=== PATIENT | male | born 1995 | race Two or more races ===

== ENCOUNTER 2024-08-02 05:05 | Emergency (ER) | payer SELFPAY ==
[~2024-08-02] VITALS: Ht 170.2 cm; Wt 98.0 kg
[2024-08-02 05:15] VITALS: O2SAT 97
[2024-08-02] MEDS: IBUPROFEN 800MG TABLET PO ONE (06:09)
[2024-08-02] MEDS: OXYCODONE HCL/ACETAMINOPHEN 5/325MG TABLET PO ONE (06:09)
[2024-08-02] MEDS ORDERED: T3 PO (06:19)
[2024-08-02] MEDS ORDERED: IBUP-2030 PO (06:19)
[2024-08-02 07:02] VITALS: BP 163/96; PULSE 101; RESP 18; TEMP 36.55848; O2SAT 97
== END 2024-08-02 07:09 | disposition home or self-care (01) ==
LOC: ER 05:05
DX: M54.9 Dorsalgia, unspecified (principal)
CPT/HCPCS: 72100; 99283

== ENCOUNTER 2024-08-06 07:17 | Emergency (ER) | payer SELFPAY ==
[~2024-08-06] VITALS: Ht 175.3 cm; Wt 95.0 kg
[~2024-08-06 07:17] MED LIST: IBUP-2030 PO; T3 PO
[2024-08-06 07:20] VITALS: O2SAT 99
[2024-08-06 09:24] LABS: BASOPHILS % 0.5 % (0.0-2.0); EOSINOPHILS % 2.9 % (0.0-5.0); HEMATOCRIT. 44.8 % (42.0-52.0); HEMOGLOBIN. 14.9 g/dL (14.0-18.0); LYMPHOCYTES % 19.3 % (20.0-50.0); MEAN CORPUSCULAR HEMOGLOBIN 27.9 pg (28.0-32.0); MEAN CORPUSCULAR HGB CONC 33.3 g/dL (31.0-37.0); MEAN CORPUSCULAR VOLUME 83.8 fL (80.0-94.0); MEAN PLATELET VOLUME 8.8 fl (7.4-10.4); MONOCYTES % 11.7 % (2.0-8.0); NEUTROPHILS % 65.6 % (40.0-76.0); PLATELET 332 x1000/uL (130-400); RED BLOOD CELL COUNT 5.35 mill/uL (4.7-6.1); WHITE BLOOD COUNT 6.7 x1000/uL (4.5-11.0)
[2024-08-06 09:31] LABS: CHLORIDE 104 mEq/L (98-107); POTASSIUM 3.4 mEq/L (3.5-5.1); SODIUM 139 mEq/L (136-145)
[2024-08-06 09:32] LABS: CALCIUM 9.8 mg/dL (8.7-10.4); CARBON DIOXIDE 27 mEq/L (21-32)
[2024-08-06 09:37] LABS: CREATININE 0.7 mg/dL (0.6-1.3); GLUCOSE 97 mg/dL (70-105); UREA NITROGEN BLOOD 11 mg/dL (9-23)
[2024-08-06 09:39] LABS: ALANINE AMINOTRANSFERASE 139 IU/L (10-49); ALBUMIN 4.5 g/dL (3.2-4.8); ASPARTATE AMINOTRANSFERASE 95 IU/L (<34); BILIRUBIN DIRECT 0.2 mg/dL (<=3.0); BILIRUBIN TOTAL 0.6 mg/dL (0.1-1.0); PROTEIN TOTAL 7.5 g/dL (6.0-8.3)
[2024-08-06] MEDS: KETOROLAC 30MG/ML VIAL IM ONE (10:07)
[2024-08-06] MEDS: HYDROCODONE/ACETAMINOPHEN 5/325MG TABLET PO ONE (10:08)
[2024-08-06] MEDS: LIDOCAINE 5% PATCH TOP SCH (10:09)
[2024-08-06] MEDS: METHOCARBAMOL 750MG TABLET PO SCH (10:09)
[2024-08-06] MEDS: POTASSIUM CHLORIDE 10MEQ TABLET SR PO ONE (11:53)
[2024-08-06] MEDS ORDERED: LIDO700A15 TP (12:46)
[2024-08-06] MEDS ORDERED: IBUP-2028 MT (12:46)
[2024-08-06] MEDS ORDERED: HYDR-4001 MT (12:46)
[2024-08-06] MEDS ORDERED: METH-653 MT (12:46)
[2024-08-06 12:53] LABS: CLARITY URINE CLEAR (CLEAR); COLOR URINE YELLOW (YELLOW); GLUCOSE URINE NEGATIVE (NEGATIVE); KETONES URINE 2+ (NEGATIVE); LEUKOCYTE ESTERASE URINE NEGATIVE (NEGATIVE); NITRITE URINE NEGATIVE (NEGATIVE); OCCULT BLOOD URINE NEGATIVE (NEGATIVE); PH URINE 6.5 (4.5-8.0); PROTEIN URINE TRACE (NEGATIVE); SPECIFIC GRAVITY URINE 1.028 (1.005-1.030)
[2024-08-06 13:02] VITALS: BP 119/74; PULSE 67; RESP 16; TEMP 36.83628; O2SAT 100
[2024-08-06 13:51] LABS: MUCUS URINE 2+ /lpf (NONE/TRACE)
[2024-08-06 13:53] LABS: SQUAMOUS EPITHELIAL CELL URINE FEW /lpf (RARE/1+)
[2024-08-06 13:56] LABS: BACTERIA URINE TRACE
[2024-08-06 13:57] LABS: RBC URINE NONE SEEN /hpf (0-2)
== END 2024-08-06 13:05 | disposition home or self-care (01) ==
LOC: ER 07:17
DX: G89.29 Other chronic pain (principal); M54.17 Radiculopathy, lumbosacral region; R00.2 Palpitations; Z79.1 Long term (current) use of non-steroidal anti-inflammatories (NSAID)
CPT/HCPCS: 80076; 80048; 81003; 83690; 85025; 36415; 96372; 99284; J1885; Z7610